=== PATIENT | male | born 1970 | race Caucasian/White ===

== ENCOUNTER 2018-10-13 14:10 | Emergency (ER) | payer OTHER ==
[2018-10-13 14:57] VITALS: BP 117/83
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
[2018-10-13] MEDS ORDERED: Naproxen TAB* 250 MG PO ONE (15:18)
== END 2018-10-13 15:29 | disposition home health service (06) ==
LOC: UCCORT 14:10
DX: M25.532 Pain in left wrist (principal); V19.9XXA Pedal cyclist (driver) (passenger) injured in unspecified traffic accident, initial encounter; Y93.55 Activity, bike riding; F17.290 Nicotine dependence, other tobacco product, uncomplicated
CPT/HCPCS: 99212; A9270-GY; G0463

== ENCOUNTER 2018-10-29 11:58 | Day surgery (SDC) | payer OTHER ==
[~2018-10-29 11:58] MED LIST: Buffered Lidocaine 1% SYRIN* 1 ML/SYRINGE INTRADERM ONE; Lactated Ringers 1000 ML Bag* 1,000 ML IV SCH
[2018-10-29] MEDS ORDERED: Buffered Lidocaine 1% SYRIN* 1 ML/SYRINGE INTRADERM ONE (12:20)
[2018-10-29] MEDS ORDERED: ceFAZolin 2 GM in NS PREMIX(*) 2 GM/100 ML BAG IVPB ONE (12:20)
[2018-10-29] MEDS ORDERED: Propofol* 10 MG/ML 20 ML BTL ONE (13:43)
[2018-10-29] MEDS ORDERED: Lidocaine 2% PF * 5 ML VIAL ONE (13:43)
[2018-10-29] MEDS ORDERED: Bupivacaine 0.25% SDV PF* 10 ML VIAL INJ ONE (14:03)
[2018-10-29] MEDS ORDERED: fentaNYL* 50 MCG/ML 2 ML VIAL (100 MCG VIAL) ONE (14:13)
[2018-10-29] MEDS ORDERED: Midazolam* 1 MG/ML 2 ML VIAL (2 MG) ONE (14:13)
[2018-10-29] MEDS ORDERED: Ketorolac INJ* 30 MG/ML 1 ML VIAL ONE (15:02)
[2018-10-29] MEDS ORDERED: Dexamethasone IV* 4 MG/ML 1 ML (4 MG) ONE (15:02)
[2018-10-29] MEDS ORDERED: Metoclopramide IV* 5 MG/ML 2 ML VIAL ONE (15:02)
[2018-10-29] MEDS ORDERED: Ondansetron INJ* 2 MG/ML VIAL ONE (15:02)
[2018-10-29] MEDS ORDERED: oxyCODONE TAB* 5 MG TAB PO PRN (15:04)
[2018-10-29] MEDS ORDERED: Acetaminophen TAB* 325 MG PO PRN (15:04)
[2018-10-29] MEDS ORDERED: DiMENhydriNATE IV* 50 MG/ML VIAL IV PUSH PRN (15:04)
[2018-10-29] MEDS ORDERED: fentaNYL* 50 MCG/ML 2 ML VIAL (100 MCG VIAL) IV PRN (15:04)
[2018-10-29] MEDS ORDERED: Naloxone* 0.4 MG/ML 1 ML VIAL IV PRN (15:04)
[2018-10-29 17:03] VITALS: BP 134/94
--- NOTE | 2018-10-29 23:02 | OP ---
DATE OF OPERATION: 10/29/18 - [facility] DATE OF : 74 SURGEON: John Muro MD. CONSTRUCTION SITE CROSSING GUARD: JOHN Ibarra. An geological survey field assistant was needed for the entirety of the procedure to aid in positioning of the arm and retraction. ANESTHESIOLOGIST: Dr. Link. ANESTHESIA: General. PRE-OP DIAGNOSIS: Right displaced scaphoid fracture. POST-OP DIAGNOSIS: Right displaced scaphoid fracture. OPERATIVE PROCEDURE: Open reduction internal fixation of right displaced scaphoid waist fracture. INDICATIONS: Timo has scaphoid waist fracture that is displaced. He is a smoker. He is in his 40s. We talked about risks and benefits. He understands there is a risk of nonunion even with surgery. He wanted to proceed with surgery. ESTIMATED BLOOD LOSS: 2 mL. COMPLICATIONS: None. FINDINGS: See above and below. DESCRIPTION OF PROCEDURE: Timo was seen in the preoperative holding area. The correct site, side, and procedure were identified. We came back to operative room. The arm was prepped and draped in the usual fashion. A time-out was performed. The arm was exsanguinated with the Esmarch, and the tourniquet was inflated to 250 mmHg. I made an oblique incision over the scaphoid which was brought back proximally along the FCR tendon for about a centimeter. Dissection was carried down. The FCR tendon sheath was opened. The tendon was retracted out of the way. The subsheath was opened. The volar carpal ligaments were incised in line with the scaphoid and the volar scaphoid was exposed preserving the radial soft tissue. The fracture was identified. It was reduced. A 0.045 K-wire was placed crossing the fracture line. I used a dental pick and a [place] elevator to aid in the retraction. Fluoroscopy confirmed the alignment. I went ahead and placed a mini Acutrak, K- wire in the center-center position. A small piece of the trapezium was excised with the osteotome to aid in positioning of the distal starting point for the screw. Once I had it in the correct position and confirmed on fluoroscopy, I measured a 27. I selected a 22-mm screw. I then went ahead and drilled for a mini and then placed the screw. When I got the screw done, I got my fluoroscopy and it was about a 0.5 cm short, and so I went ahead and backed that out and selected a 26- mm screw and placed it. It got excellent bite and excellent compression, and mini C-arm fluoroscopy confirmed that it was the appropriate length and in the appropriate position. All the supplemental K-wires were withdrawn. We irrigated out the wound. The volar capsular ligaments were closed with 4-0 PDS suture. The skin was closed with 4-0 nylon suture, 0.25% plain Marcaine was infiltrated around the operative area. A short-arm thumb spica splint with with the IP joint free was applied. He was woken up and taken to the recovery room in stable condition. [id number]/CPS #: [id number] JOEL
== END 2018-10-29 17:09 | disposition home or self-care (01) ==
LOC: OR 11:58
PROVIDERS: ATTEND Orthopaedic Surgery Hand Surgery
DX: S62.002A Unspecified fracture of navicular [scaphoid] bone of left wrist, initial encounter for closed fracture (principal); V18.0XXA Pedal cycle driver injured in noncollision transport accident in nontraffic accident, initial encounter; Y93.55 Activity, bike riding; Y92.9 Unspecified place or not applicable; Z72.0 Tobacco use; F32.9 Major depressive disorder, single episode, unspecified
CPT/HCPCS: 76000; C1713; C1776; J0690; J1100; J1885; J2250; J2405; J2704; J2765; J3010; J3490

== ENCOUNTER 2019-01-08 21:17 | Emergency (ER) | payer OTHER ==
[2019-01-08 21:28] VITALS: BP 126/83
[2019-01-08] MEDS ORDERED: Sulfamethox/Trimethoprim DS 800/160* TAB PO ONE (21:37)
--- NOTE | 2019-01-08 21:37 | ED ---
Skin Complaint - HPI Summary HPI Summary: 48 yr old male with skin lesion right side face over the zygomatic area. He states there was a hard bump for several months there, and over the past week he has had some increase in size and pain that is moderate. No drainage no fever or chills. He is a smoker. He has no other complaints. - History of Current Complaint Chief Complaint: UCSkin Time Seen by Provider: 01/08/19 21:28 Stated Complaint: SKIN COMP Pain Intensity: 8 - Allergy/Home Medications Allergies/Adverse Reactions: Allergies Allergy/AdvReac Type Severity Reaction Status Date / Time zolpidem [From Ambien] Allergy Severe facial Verified 01/08/19 21:22 swelling PMH/Surg Hx/FS Hx/Imm Hx Endocrine/Hematology History: Denies: Hx Diabetes, Hx Thyroid Disease Cardiovascular History: Denies: Other Cardiovascular Problems/Disorders Respiratory History: Denies: Hx Asthma, Hx Chronic Obstructive Pulmonary Disease (COPD), Hx Lung Cancer, Hx Pneumonia, Hx Pulmonary Embolism, Hx Sleep Apnea, Other Respiratory Problems/Disorders GI History: Reports: Other GI Disorders - CHOLECYSTECTOMY 2009 Denies: Hx Crohn's Disease, Hx Gall Bladder Disease, Hx Gastroesophageal Reflux Disease, Hx Gastrointestinal Bleed, Hx Ulcer, Hx Urosepsis History: Denies: Hx Kidney Stones, Hx Renal Disease, Other Problems/Disorders Musculoskeletal History: Reports: Other Musculoskeletal History - fracture of navicular [scaphoid] bone of left wrist 10/12/18 Sensory History: Denies: Hx Contacts or Glasses, Hx Hearing Aid Opthamlomology History: Denies: Hx Contacts or Glasses Neurological History: Denies: Hx Dementia, Hx Headaches, Hx Migraine, Hx Nerve Disease, Hx Seizures , Hx Transient Ischemic Attacks (TIA), Other Neuro Impairments/Disorders Psychiatric History: Reports: Hx Anxiety, Hx Depression - Surgical History Surgery Procedure, Year, and Place: Cholecystectomy 2009 [place]. Fatty Tumor Removed. Left Arm Surgery/elbow tendon repair Hx Anesthesia Reactions: No Infectious Disease History: Yes Infectious Disease History: Reports: Hx Hepatitis - Hep. C-treated Denies: Hx Clostridium Difficile, Hx Human Immunodeficiency Virus (HIV), Hx of Known/Suspected MRSA, Hx Shingles, Hx Tuberculosis, Hx Known/Suspected VRE, Hx Known/Suspected VRSA, History Other Infectious Disease, Traveled Outside the [place] in Last 30 Days - Family History Known Family History: Positive: Hypertension, Other - stroke in grandmother - Social History Occupation: Unemployed Alcohol Use: None Alcohol Amount: h/o ETOH abuse Substance Use Type: Reports: None Smoking Status (MU): Heavy Every Day Tobacco Smoker Type: Cigarettes Amount Used/How Often: 1.5 PPD FOR STARTED AGAIN IN 2006 Length of Time of Smoking/Using Tobacco: 27 Years Have You Smoked in the Last Year: Yes Review of Systems Constitutional: Negative Positive: Other - skin lesion right face All Other Systems Reviewed And Are Negative: Yes Physical Exam Triage Information Reviewed: Yes Vital Signs On Initial Exam: Initial Vitals Temp Pulse Resp BP Pulse Ox 98.2 F 81 18 126/83 97 01/08/19 21:23 01/08/19 21:23 01/08/19 21:23 01/08/19 21:23 01/08/19 21:23 Vital Signs Reviewed: Yes Appearance: Positive: Well-Appearing, No Pain Distress, Well-Nourished Skin: Positive: Warm, Skin Color Reflects Adequate Perfusion Head/Face: Positive: Normal Head/Face Inspection Eyes: Positive: Normal, EOMI, ANKUR ENT: Positive: Normal ENT inspection, Other - the right side of his face zygomatic area has a 1.5 cm area of firm center and then surrounding induration another 0.5 cm. No obvious fluctuance. No friabilitiy, no ulceration. This is about 1.5 cm from the corner of the lateral eyelids. Neck: Positive: Nontender Respiratory/Lung Sounds: Positive: Clear to Auscultation, Breath Sounds Present Cardiovascular: Positive: RRR. Negative: Murmur Abdomen Description: Positive: Nontender Musculoskeletal: Positive: Strength/ROM Intact Neurological: Positive: Sensory/Motor Intact, Alert, Oriented to Person Place, Time, CN Intact II-III, Normal Gait, Speech Normal Psychiatric: Positive: Normal Diagnostics - Vital Signs Vital Signs Temp Pulse Resp BP Pulse Ox 01/08/19 21:23 98.2 F 81 18 126/83 97 - Laboratory Lab Statement: Any lab studies that have been ordered have been reviewed, and results considered in the medical decision making process. Course/Dx - Course Course Of Treatment: 48 yr old with likely cyst vs possible skin cancer with some skin infection. Will Rx with Bactrim DS, and DC home. He is being sent on to Plastic surgery for removal of the skin lesion and careful wound margins. The patient knows he needs to follow up with plastic surgery and that this could be a skin cancer. He will go to the ER for any worsening symptoms. - Diagnoses Provider Diagnoses: Cyst, dermoid, face, Abscess Discharge ED - Sign-Out/Discharge Documenting (check all that apply): Patient Departure All imaging exams completed and their final reports reviewed: No Studies - Discharge Plan Condition: Good Disposition: HOME Prescriptions: Sulfamethox/Trimethoprim DS* [Bactrim DS 800/160 TAB*] 1 tab PO BID #20 tab Patient Education Materials: Basal Cell Carcinoma (DC), Dermal Cyst Excision ( DC), Abscess (ED) Referrals: Isaebl Garduno MD [Primary Care Provider] - 1 Day Ludwin Lopez MD [Medical Doctor] - 1 Day - Billing Disposition and Condition Condition: GOOD Disposition: Home
== END 2019-01-08 21:44 | disposition home or self-care (01) ==
LOC: UCCORT 21:17
DX: D36.7 Benign neoplasm of other specified sites (principal); L02.01 Cutaneous abscess of face; F17.210 Nicotine dependence, cigarettes, uncomplicated
CPT/HCPCS: 99212; A9270-GY; G0463

== ENCOUNTER 2019-09-03 19:42 | Emergency (ER) | payer OTHER ==
[2019-09-03 19:50] VITALS: BP 125/83
== END 2019-09-03 20:06 | disposition home or self-care (01) ==
LOC: UCCORT 19:42